=== PATIENT | female | born 1975 | race Caucasian/White ===

== ENCOUNTER 2019-05-22 09:45 | Emergency (ER) | payer OTHER ==
[~2019-05-22] VITALS: Ht 160 cm; Wt 56.2 kg
[~2019-05-22 09:45] MED LIST: ALPR.25 PO; AMOCLA500 PO; AMOX500 PO; Bactrim Ds Tab1 EACH PO; CEFD300 PO; CEPH500 PO; CIPR500 PO; CLIN300 PO; CLON.1 PO; CLON.2 PO; CLON.5 PO; CODACE30 PO; CRUTCH4 USE; Cleocin HCl300 MG PO; Cyclobenzaprine5 MG PO; DESI50 MT; DICY20 PO; DIVA500EC PO; ESCI10 PO; FLUO10 PO; FLUT.05NI; HYDACE25S PR; HYDACE5 PO; HYDMOR2 PO; IBUP800 PO; IRON150C; Keflex500 MG PO; LITH300ER PO; LORA1 PO; MIRT30; MULVITMINE; NAPR375 PO; NAPR500 PO; Naprosyn500 MG PO; OLAN20 PO; OMEP20ER PO; ONDA4 PO; ONDA4ODT SL; OXYACE5T PO; PENVK500 PO; PHENA200 PO; PRED20 PO; PRODEXEL PO; PROG100 PO; PROM25 PO; PROP10 PO; RXCLIN PO; RXNAPNA550 PO; SILSUL1TC TOP; SUBUTEX; SULTRIDS PO; TRAACE PO; TRAM50 PO; TRAZ50 PO; VENL37.5ER PO; Verotin-Gr Cap1 EACH PO
[2019-05-22 11:24] LABS: BASOPHILS ABSOLUTE AUTO 0.04 K/mm3 (0.00-0.23); BASOPHILS PERCENT AUTO 1 % (0-2); EOSINOPHILS ABSOLUTE AUTO 0.12 K/mm3 (0.00-0.68); EOSINOPHILS PERCENT AUTO 2 % (0-6); Hematocrit 36.4 % (33.0-51.0); Hemoglobin 11.6 g/dL (11.5-16.0); IMMATURE GRAN ABSOLUTE AUTO 0.02 K/mm3 (0.00-0.10); IMMATURE GRAN PERCENT AUTO 0 % (0-1); LYMPHOCYTES ABSOLUTE AUTO 1.42 K/mm3 (0.84-5.20); LYMPHOCYTES PERCENT AUTO 19 % (21-46); MONOCYTES ABSOLUTE AUTO 0.46 K/mm3 (0.16-1.47); MONOCYTES PERCENT AUTO 6 % (4-13); Mean Corpuscular HGB 28.1 pg (26.0-34.0); Mean Corpuscular HGB Conc 31.9 g/dL (31.5-36.5); Mean Corpuscular Volume 88 fL (80-100); Mean Platelet Volume 10.8 fL (9.1-12.4); NEUTROPHILS PERCENT AUTO 73 % (41-73); Platelet Count 261 K/mm3 (150-400); RDW Coefficient Variation 14.3 % (11.7-14.2); RDW Standard Deviation 45.8 fL (35.1-46.3); Red Blood Cell Count 4.13 M/mm3 (3.80-5.20); White Blood Cell Count 7.56 K/mm3 (4.00-11.30)
[2019-05-22 11:43] LABS: Acetaminophen, Random <2.0 ug/mL (10.0-30.0); Alanine Aminotransfer (ALT/SGP 18 U/L (12-78); Albumin, Blood 3.2 g/dL (3.4-5.0); Alk Phos 68 U/L (50-136); Anion Gap 6 mmol/L (6-16); Aspartate Aminotrans (AST/SGOT 14 U/L (12-37); Bilirubin, Total 0.2 mg/dL (0.1-1.0); Blood Urea Nitrogen 9 mg/dL (8-24); Bun/Creatinine Ratio 17.4 (12.0-20.0); CO2, Blood 27 mmol/L (21-32); Calcium, Blood 8.6 mg/dL (8.5-10.1); Chloride, Blood 110 mmol/L (98-108); Creatinine, Blood 0.52 mg/dL (0.40-1.00); Ethanol (Alcohol), Blood, Med <3 mg/dL; Globulin, Blood 3.3 g/dL (2.2-4.0); Glomerular Filtration Rate >60 (60-); Glucose, Blood 104 mg/dL (70-99); Potassium, Blood 3.7 mmol/L (3.5-5.5); Salicylate <1.7 mg/dL (2.8-20.0); Sodium, Blood 143 mmol/L (136-145); Thyroxine (T4) 7.5 ug/dL (4.8-13.9); Total Protein, Blood 6.5 g/dL (6.4-8.2)
[2019-05-22 11:49] LABS: Source, Urine Voided
[2019-05-22 11:52] LABS: Bilirubin, Urine Neg (Neg); Blood, Urine 1+ (Neg); Glucose Qualitative, Urine Neg (Neg); Ketones, Urine 1+ (Neg); Leukocyte Esterase, Urine 2+ (Neg); Nitrite, Urine Neg (Neg); Protein, Urine 1+ (Neg); Urobilinogen, Urine 1+ (Normal)
[2019-05-22 12:13] LABS: U Amphetamine Screen DETECTED; U Barbituate Screen Not Detected; U Benzodiazapine Screen Not Detected; U Cocaine Screen Not Detected; U Methamphetamine Screen DETECTED
[2019-05-22 12:14] LABS: U Buprenorphine Screen Not Detected; U Cannabinoids Screen DETECTED; U Methadone Screen Not Detected; U Opiates Screen DETECTED; U Oxycodone Screen Not Detected; U Phencyclidine Screen Not Detected; U Propoxyphene Screen Not Detected
[2019-05-22 12:17] LABS: Appearance, Urine Hazy (Clear); Color, Urine Yellow (P-Yellow)
[2019-05-22 12:19] LABS: White Blood Cells, Urine 25-50 /hpf (0-5)
[2019-05-22 12:20] LABS: Bacteria Many /hpf; Red Blood Cells, Urine 0-2 /hpf (0-2); Squamous Epithelial Cells Many /hpf (Few)
[2019-05-22 12:21] LABS: Calcium Oxalate Crystals Mod /hpf
== END 2019-05-22 12:53 | disposition home or self-care (01) ==
LOC: ER 09:45
PROVIDERS: Emergency Medicine
DX: F31.9 Bipolar disorder, unspecified (principal); F17.200 Nicotine dependence, unspecified, uncomplicated
CPT/HCPCS: 36415; 80053; 81001; 81025; 84436; 85025; 87077; 87086; 87186; 99284; G0480

== ENCOUNTER 2019-06-26 17:09 | Observation (INO) | payer OTHER ==
[~2019-06-26] VITALS: Ht 160 cm; Wt 74.8 kg
[2019-06-26 17:45] LABS: BASOPHILS ABSOLUTE AUTO 0.04 K/mm3 (0.00-0.23); BASOPHILS PERCENT AUTO 1 % (0-2); EOSINOPHILS ABSOLUTE AUTO 0.08 K/mm3 (0.00-0.68); EOSINOPHILS PERCENT AUTO 1 % (0-6); Hematocrit 46.7 % (33.0-51.0); Hemoglobin 15.1 g/dL (11.5-16.0); IMMATURE GRAN PERCENT AUTO 0 % (0-1); LYMPHOCYTES ABSOLUTE AUTO 2.46 K/mm3 (0.84-5.20); LYMPHOCYTES PERCENT AUTO 31 % (21-46); MONOCYTES ABSOLUTE AUTO 0.67 K/mm3 (0.16-1.47); MONOCYTES PERCENT AUTO 8 % (4-13); Mean Corpuscular HGB 28.9 pg (26.0-34.0); Mean Corpuscular HGB Conc 32.3 g/dL (31.5-36.5); Mean Corpuscular Volume 89 fL (80-100); NEUTROPHILS ABSOLUTE AUTO 4.73 K/mm3 (1.96-9.15); NEUTROPHILS PERCENT AUTO 59 % (41-73); Platelet Count 264 K/mm3 (150-400); RDW Coefficient Variation 13.9 % (11.7-14.2); RDW Standard Deviation 45.8 fL (35.1-46.3); Red Blood Cell Count 5.23 M/mm3 (3.80-5.20); White Blood Cell Count 7.98 K/mm3 (4.00-11.30)
[2019-06-26 17:47] LABS: Source, Urine Clean Catch
[2019-06-26 17:53] LABS: Bilirubin, Urine Neg (Neg); Blood, Urine Neg (Neg); Glucose Qualitative, Urine Neg (Neg); Ketones, Urine Neg (Neg); Leukocyte Esterase, Urine 1+ (Neg); Nitrite, Urine Neg (Neg); Protein, Urine 1+ (Neg); Specific Gravity, Urine 1.015 (1.003-1.022); Urobilinogen, Urine 1+ (Normal)
[2019-06-26 17:58] LABS: Appearance, Urine Clear (Clear); Color, Urine Yellow (P-Yellow)
[2019-06-26 18:00] LABS: Amorphous Mod (0-Heavy); Bacteria Many /hpf; Hyaline Casts 0-2 /lpf (0-2); Mucus Mod (0-Heavy); Red Blood Cells, Urine 0-2 /hpf (0-2); Squamous Epithelial Cells Few /hpf (Few)
[2019-06-26 18:04] LABS: U Amphetamine Screen Not Detected; U Barbituate Screen Not Detected; U Benzodiazapine Screen Not Detected; U Buprenorphine Screen Not Detected; U Cannabinoids Screen Not Detected; U Cocaine Screen Not Detected; U Methadone Screen Not Detected; U Methamphetamine Screen Not Detected; U Opiates Screen Not Detected; U Oxycodone Screen Not Detected; U Phencyclidine Screen Not Detected; U Propoxyphene Screen Not Detected
[2019-06-26 18:05] LABS: International Normalized Ratio 1.07; Prothrombin Time Results 11.4 Sec (9.7-11.5)
[2019-06-26 18:07] LABS: Alanine Aminotransfer (ALT/SGP 22 U/L (12-78); Albumin, Blood 4.6 g/dL (3.4-5.0); Albumin/Globulin Ratio 1.3 (0.8-1.8); Alk Phos 71 U/L (50-136); Anion Gap 2 mmol/L (6-16); Aspartate Aminotrans (AST/SGOT 15 U/L (12-37); Bilirubin, Total 0.5 mg/dL (0.1-1.0); Blood Urea Nitrogen 14 mg/dL (8-24); Bun/Creatinine Ratio 22.4 (12.0-20.0); CO2, Blood 29 mmol/L (21-32); Calcium, Blood 9.8 mg/dL (8.5-10.1); Chloride, Blood 110 mmol/L (98-108); Creatinine, Blood 0.62 mg/dL (0.40-1.00); Ethanol (Alcohol), Blood, Med <3 mg/dL; Globulin, Blood 3.5 g/dL (2.2-4.0); Glomerular Filtration Rate >60 (60-); Glucose, Blood 106 mg/dL (70-99); Sodium, Blood 141 mmol/L (136-145); Total Protein, Blood 8.1 g/dL (6.4-8.2)
[2019-06-26 18:12] LABS: Lithium <0.20 mmol/L (0.60-1.20)
[2019-06-29 08:54] LABS: Free Thyroxine 1.38 ng/dL (0.70-1.60)
[2019-06-29 08:58] LABS: Triiodothyronine, Free 3.14 pg/mL (2.18-3.98)
[2019-07-03] MEDS ORDERED: QUET300 PO (14:27)
[2019-07-03] MEDS ORDERED: LEVFLO500 PO (14:28)
[2019-07-03] MEDS ORDERED: Seroquel Xr50 MG PO (14:28)
[2019-07-03] MEDS ORDERED: ZYPREXA10 MG IM (14:29)
== END 2019-07-03 10:40 ==
LOC: ER 17:09 → EOR 17:10
PROVIDERS: Emergency Medicine; Physician Assistant; ADMIT Emergency Medicine
DX: F23 Brief psychotic disorder (principal)
CPT/HCPCS: 36415; 80053; 80178; 81001; 81025; 84439; 84443; 84481; 85025; 85610; 87077; 87086; 87186; 93005; 93010; 96372; 99285-25; A9270-GY; G0378; G0480; J1200; J1630; J2060; J3486

== ENCOUNTER 2019-07-03 14:16 | Observation (INO) | payer OTHER ==
[~2019-07-03] VITALS: Ht 160 cm; Wt 74.8 kg
[2019-07-03] MEDS ORDERED: QUET300 PO (14:27)
[2019-07-03] MEDS ORDERED: Seroquel Xr50 MG PO (14:28)
[2019-07-03] MEDS ORDERED: LEVFLO500 PO (14:28)
[2019-07-03] MEDS ORDERED: ZYPREXA10 MG IM (14:29)
== END 2019-07-07 18:30 ==
LOC: ER 14:16 → EOR 14:24
PROVIDERS: ADMIT Emergency Medicine
DX: F20.89 Other schizophrenia (principal); F17.210 Nicotine dependence, cigarettes, uncomplicated; Z79.899 Other long term (current) drug therapy
CPT/HCPCS: 74018; 96372; 99285-25; G0378; J1200; J1630; J2060

== ENCOUNTER → 2019-10-19 | Outpatient (CLI) | payer OTHER ==
[~2019-10-19] MED LIST changes: +LEVFLO500 PO; +QUET300 PO; +Seroquel Xr50 MG PO; +ZYPREXA10 MG IM
[2019-10-20 10:13] LABS: Candida species (DNA Probe) Negative (NEGATIVE); G. vaginalis (DNA Probe) Positive (NEGATIVE); T. vaginalis (DNA Probe) Positive (NEGATIVE)
[2019-10-21 08:09] LABS: CHLAMYDIA TRACHOMATIS, NAA Negative (Negative); NEISSERIA GONORRHOEAE, NAA Negative (Negative)
== END ==
LOC: LAB SHORT 12:51 → LAB SRC 12:51
PROVIDERS: Nurse Practitioner Family
DX: N89.8 Other specified noninflammatory disorders of vagina (principal)
CPT/HCPCS: 87070; 87205; 87480; 87491; 87510; 87591; 87660

== ENCOUNTER 2019-11-19 20:18 | Emergency (ER) | payer OTHER ==
[~2019-11-19] VITALS: Ht 160 cm; Wt 59.0 kg
== END 2019-11-19 23:36 | disposition left against medical advice (07) ==
LOC: ER 20:18
DX: Z53.21 Procedure and treatment not carried out due to patient leaving prior to being seen by health care provider (principal)
CPT/HCPCS: 70160; 99283-25

== ENCOUNTER 2020-01-12 12:10 | Emergency (ER) | payer OTHER ==
[~2020-01-12] VITALS: Ht 160 cm; Wt 63.5 kg
== END 2020-01-12 14:28 | disposition home or self-care (01) ==
LOC: ER 12:10
DX: S01.81XA Laceration without foreign body of other part of head, initial encounter (principal); S80.211A Abrasion, right knee, initial encounter; R42 Dizziness and giddiness; F41.9 Anxiety disorder, unspecified; F29 Unspecified psychosis not due to a substance or known physiological condition; F43.10 Post-traumatic stress disorder, unspecified; F17.210 Nicotine dependence, cigarettes, uncomplicated; Z79.899 Other long term (current) drug therapy; W10.1XXA Fall (on)(from) sidewalk curb, initial encounter; Y92.480 Sidewalk as the place of occurrence of the external cause
CPT/HCPCS: 12051; 99284-25

== ENCOUNTER 2020-01-17 10:44 | Emergency (ER) | payer OTHER ==
[~2020-01-17] VITALS: Ht 160 cm; Wt 66.2 kg
[2020-01-17] MEDS ORDERED: METH40 PO (10:50)
[2020-01-17] MEDS ORDERED: ARISTADA IM (10:50)
== END 2020-01-17 11:16 | disposition home or self-care (01) ==
LOC: ER 10:44
DX: S01.111D Laceration without foreign body of right eyelid and periocular area, subsequent encounter (principal); F41.9 Anxiety disorder, unspecified; F17.200 Nicotine dependence, unspecified, uncomplicated; Z79.899 Other long term (current) drug therapy; X58.XXXD Exposure to other specified factors, subsequent encounter

== ENCOUNTER 2020-03-13 08:04 | Day surgery (SDC) | payer OTHER ==
[~2020-03-13 08:04] MED LIST changes: +ARISTADA IM; +METH40 PO
== END 2020-03-13 23:21 | disposition home or self-care (01) ==
LOC: WOUND 08:04
DX: S41.102D Unspecified open wound of left upper arm, subsequent encounter (principal); S41.002D Unspecified open wound of left shoulder, subsequent encounter; L02.91 Cutaneous abscess, unspecified; B95.62 Methicillin resistant Staphylococcus aureus infection as the cause of diseases classified elsewhere; F17.200 Nicotine dependence, unspecified, uncomplicated
CPT/HCPCS: G0463

== ENCOUNTER 2020-03-15 00:26 | Day surgery (SDC) | payer OTHER | END 2020-03-15 22:55 | disposition home or self-care (01) | LOC: WOUND 00:26 | DX: S41.102D Unspecified open wound of left upper arm, subsequent encounter (principal); S41.002D Unspecified open wound of left shoulder, subsequent encounter; L02.414 Cutaneous abscess of left upper limb; I96 Gangrene, not elsewhere classified; B95.62 Methicillin resistant Staphylococcus aureus infection as the cause of diseases classified elsewhere; E07.9 Disorder of thyroid, unspecified; B19.20 Unspecified viral hepatitis C without hepatic coma; Z79.899 Other long term (current) drug therapy; X58.XXXD Exposure to other specified factors, subsequent encounter | CPT/HCPCS: G0463 ==

== ENCOUNTER 2020-03-18 01:19 | Day surgery (SDC) | payer OTHER | END 2020-03-18 23:12 | disposition home or self-care (01) | LOC: WOUND 01:19 | DX: L02.414 Cutaneous abscess of left upper limb (principal); B95.62 Methicillin resistant Staphylococcus aureus infection as the cause of diseases classified elsewhere; I96 Gangrene, not elsewhere classified; F41.9 Anxiety disorder, unspecified; B19.20 Unspecified viral hepatitis C without hepatic coma; F31.9 Bipolar disorder, unspecified; F89 Unspecified disorder of psychological development; Z79.899 Other long term (current) drug therapy; Z85.41 Personal history of malignant neoplasm of cervix uteri | CPT/HCPCS: G0463 ==

== ENCOUNTER 2020-03-20 01:07 | Day surgery (SDC) | payer OTHER | END 2020-03-20 22:46 | disposition home or self-care (01) | LOC: WOUND 01:07 | DX: S41.102D Unspecified open wound of left upper arm, subsequent encounter (principal); S41.002D Unspecified open wound of left shoulder, subsequent encounter; L02.91 Cutaneous abscess, unspecified; B95.62 Methicillin resistant Staphylococcus aureus infection as the cause of diseases classified elsewhere | CPT/HCPCS: G0463 ==

== ENCOUNTER 2020-03-22 00:48 | Day surgery (SDC) | payer OTHER | END 2020-03-22 23:03 | disposition home or self-care (01) | LOC: WOUND 00:48 | DX: L02.414 Cutaneous abscess of left upper limb (principal); S41.102D Unspecified open wound of left upper arm, subsequent encounter; S41.002D Unspecified open wound of left shoulder, subsequent encounter; B95.62 Methicillin resistant Staphylococcus aureus infection as the cause of diseases classified elsewhere; E07.9 Disorder of thyroid, unspecified; I96 Gangrene, not elsewhere classified; X58.XXXD Exposure to other specified factors, subsequent encounter | CPT/HCPCS: G0463 ==

== ENCOUNTER 2020-03-25 02:18 | Day surgery (SDC) | payer OTHER | END 2020-03-25 23:20 | disposition home or self-care (01) | LOC: WOUND 02:18 | DX: L02.414 Cutaneous abscess of left upper limb (principal); B95.62 Methicillin resistant Staphylococcus aureus infection as the cause of diseases classified elsewhere; S41.102D Unspecified open wound of left upper arm, subsequent encounter; S41.002D Unspecified open wound of left shoulder, subsequent encounter; I96 Gangrene, not elsewhere classified; F41.9 Anxiety disorder, unspecified; F31.9 Bipolar disorder, unspecified; F89 Unspecified disorder of psychological development; E07.9 Disorder of thyroid, unspecified; Z79.899 Other long term (current) drug therapy; X58.XXXD Exposure to other specified factors, subsequent encounter ==

== ENCOUNTER 2020-03-27 03:12 | Day surgery (SDC) | payer OTHER | END 2020-03-27 23:33 | disposition home or self-care (01) | LOC: WOUND 03:12 | DX: L02.414 Cutaneous abscess of left upper limb (principal); S41.102D Unspecified open wound of left upper arm, subsequent encounter; S41.002D Unspecified open wound of left shoulder, subsequent encounter; B95.62 Methicillin resistant Staphylococcus aureus infection as the cause of diseases classified elsewhere; E07.9 Disorder of thyroid, unspecified; X58.XXXD Exposure to other specified factors, subsequent encounter; Z79.899 Other long term (current) drug therapy | CPT/HCPCS: G0463 ==

== ENCOUNTER 2020-04-01 01:33 | Day surgery (SDC) | payer OTHER | END 2020-04-01 22:56 | disposition home or self-care (01) | LOC: WOUND 01:33 | DX: S41.102D Unspecified open wound of left upper arm, subsequent encounter (principal); S41.002D Unspecified open wound of left shoulder, subsequent encounter; L02.91 Cutaneous abscess, unspecified; B95.62 Methicillin resistant Staphylococcus aureus infection as the cause of diseases classified elsewhere | CPT/HCPCS: G0463 ==

== ENCOUNTER 2021-02-12 17:25 | Observation (INO) | payer OTHER ==
[~2021-02-12] VITALS: Ht 160 cm; Wt 59.6 kg
[2021-02-12 18:24] LABS: Source, Urine Voided
[2021-02-12 18:32] LABS: Appearance, Urine Hazy (Clear); Bilirubin, Urine Neg (Neg); Blood, Urine Neg (Neg); Color, Urine Yellow (P-Yellow); Glucose Qualitative, Urine Neg (Neg); Ketones, Urine Neg (Neg); Leukocyte Esterase, Urine 1+ (Neg); Nitrite, Urine Neg (Neg); Protein, Urine 1+ (Neg); Specific Gravity, Urine 1.015 (1.003-1.022); Urobilinogen, Urine NORM (Normal)
[2021-02-12 18:40] LABS: BASOPHILS ABSOLUTE AUTO 0.04 K/mm3 (0.00-0.23); BASOPHILS PERCENT AUTO 0 % (0-2); EOSINOPHILS ABSOLUTE AUTO 0.06 K/mm3 (0.00-0.68); EOSINOPHILS PERCENT AUTO 1 % (0-6); Hemoglobin 13.7 g/dL (11.5-16.0); IMMATURE GRAN ABSOLUTE AUTO 0.04 K/mm3 (0.00-0.10); IMMATURE GRAN PERCENT AUTO 0 % (0-1); LYMPHOCYTES ABSOLUTE AUTO 1.61 K/mm3 (0.84-5.20); LYMPHOCYTES PERCENT AUTO 15 % (21-46); MONOCYTES ABSOLUTE AUTO 0.53 K/mm3 (0.16-1.47); MONOCYTES PERCENT AUTO 5 % (4-13); Mean Corpuscular HGB 27.7 pg (26.0-34.0); Mean Corpuscular HGB Conc 32.6 g/dL (31.5-36.5); Mean Corpuscular Volume 85 fL (80-100); Mean Platelet Volume 10.5 fL (9.1-12.4); NEUTROPHILS ABSOLUTE AUTO 8.62 K/mm3 (1.96-9.15); NEUTROPHILS PERCENT AUTO 79 % (41-73); Platelet Count 297 K/mm3 (150-400); RDW Coefficient Variation 14.6 % (11.7-14.2); RDW Standard Deviation 44.6 fL (35.1-46.3); Red Blood Cell Count 4.94 M/mm3 (3.80-5.20)
[2021-02-12 18:53] LABS: U Amphetamine Screen DETECTED; U Barbituate Screen Not Detected; U Benzodiazapine Screen Not Detected; U Buprenorphine Screen Not Detected; U Cannabinoids Screen Not Detected; U Cocaine Screen Not Detected; U Methadone Screen Not Detected; U Methamphetamine Screen DETECTED; U Opiates Screen Not Detected; U Oxycodone Screen Not Detected; U Phencyclidine Screen Not Detected; U Propoxyphene Screen Not Detected
[2021-02-12 18:54] LABS: Alanine Aminotransfer (ALT/SGP 17 U/L (12-78); Alk Phos 90 U/L (50-136); Anion Gap 5 mmol/L (6-16); Aspartate Aminotrans (AST/SGOT 11 U/L (12-37); Bilirubin, Total 0.3 mg/dL (0.1-1.0); Blood Urea Nitrogen 10 mg/dL (8-24); Bun/Creatinine Ratio 16.6 (12.0-20.0); CO2, Blood 24 mmol/L (21-32); Calcium, Blood 9.1 mg/dL (8.5-10.1); Chloride, Blood 113 mmol/L (98-108); Ethanol (Alcohol), Blood, Med <3 mg/dL; Globulin, Blood 3.9 g/dL (2.2-4.0); Glomerular Filtration Rate >60 (60-); Glucose, Blood 92 mg/dL (70-99); Potassium, Blood 2.6 mmol/L (3.5-5.5); Salicylate <1.7 mg/dL (2.8-20.0); Sodium, Blood 142 mmol/L (136-145); Total Protein, Blood 7.9 g/dL (6.4-8.2)
[2021-02-12 18:56] LABS: Acetaminophen, Random <2.0 ug/mL (10.0-30.0)
[2021-02-12 19:22] LABS: Amorphous Mod (0-Heavy); Bacteria Many /hpf; Red Blood Cells, Urine 0-2 /hpf (0-2); Squamous Epithelial Cells Many /hpf (Few)
[2021-02-14 11:19] LABS: SARS-Cov-2 (COVID-19) PCR, MMC POSITIVE (NEGATIVE)
[2021-02-14 13:51] LABS: BASOPHILS ABSOLUTE AUTO 0.02 K/mm3 (0.00-0.23); BASOPHILS PERCENT AUTO 0 % (0-2); EOSINOPHILS ABSOLUTE AUTO 0.04 K/mm3 (0.00-0.68); EOSINOPHILS PERCENT AUTO 0 % (0-6); Hematocrit 41.2 % (33.0-51.0); Hemoglobin 13.5 g/dL (11.5-16.0); IMMATURE GRAN ABSOLUTE AUTO 0.03 K/mm3 (0.00-0.10); IMMATURE GRAN PERCENT AUTO 0 % (0-1); LYMPHOCYTES ABSOLUTE AUTO 1.21 K/mm3 (0.84-5.20); LYMPHOCYTES PERCENT AUTO 12 % (21-46); MONOCYTES ABSOLUTE AUTO 0.46 K/mm3 (0.16-1.47); MONOCYTES PERCENT AUTO 5 % (4-13); Mean Corpuscular HGB 27.8 pg (26.0-34.0); Mean Corpuscular HGB Conc 32.8 g/dL (31.5-36.5); Mean Corpuscular Volume 85 fL (80-100); Mean Platelet Volume 10.3 fL (9.1-12.4); NEUTROPHILS ABSOLUTE AUTO 8.21 K/mm3 (1.96-9.15); NEUTROPHILS PERCENT AUTO 82 % (41-73); Platelet Count 261 K/mm3 (150-400); RDW Coefficient Variation 14.6 % (11.7-14.2); Red Blood Cell Count 4.85 M/mm3 (3.80-5.20); White Blood Cell Count 9.97 K/mm3 (4.00-11.30)
[2021-02-14 14:09] LABS: Alanine Aminotransfer (ALT/SGP 15 U/L (12-78); Albumin, Blood 3.7 g/dL (3.4-5.0); Albumin/Globulin Ratio 1.1 (0.8-1.8); Alk Phos 81 U/L (50-136); Anion Gap 6 mmol/L (6-16); Aspartate Aminotrans (AST/SGOT 13 U/L (12-37); Bilirubin, Total 0.2 mg/dL (0.1-1.0); Blood Urea Nitrogen 8 mg/dL (8-24); Bun/Creatinine Ratio 12.6 (12.0-20.0); CO2, Blood 26 mmol/L (21-32); Calcium, Blood 9.1 mg/dL (8.5-10.1); Chloride, Blood 111 mmol/L (98-108); Creatinine, Blood 0.63 mg/dL (0.40-1.00); Globulin, Blood 3.4 g/dL (2.2-4.0); Glomerular Filtration Rate >60 (60-); Glucose, Blood 95 mg/dL (70-99); Potassium, Blood 3.5 mmol/L (3.5-5.5); Sodium, Blood 143 mmol/L (136-145); Total Protein, Blood 7.1 g/dL (6.4-8.2)
== END 2021-02-19 17:23 | disposition home or self-care (01) ==
LOC: ER 17:25 → EOR 17:26 → MEDS 17:26 → EOR 02-14 14:47 → MEDS 02-14 14:47 → ER 02-14 14:47 → EOR 02-14 14:47 → MEDS 02-14 14:48 → ER 02-14 14:48 → MEDS 02-14 14:48
PROVIDERS: Nurse Practitioner Acute Care; ADMIT Emergency Medicine
DX: F20.9 Schizophrenia, unspecified (principal); F19.10 Other psychoactive substance abuse, uncomplicated; U07.1 COVID-19; F17.210 Nicotine dependence, cigarettes, uncomplicated; Z86.19 Personal history of other infectious and parasitic diseases
CPT/HCPCS: 36415; 71045; 80053; 81001; 81025; 83735; 85025; 87077; 87086; 87186; 96372; 99285-25; A9270; G0378; G0480; J1200; J1630; U0004

== ENCOUNTER 2021-08-09 23:26 | Emergency (ER) | payer OTHER ==
[~2021-08-09] VITALS: Ht 160 cm; Wt 63.5 kg
[2021-08-09] MEDS ORDERED: IBUP600 PO (23:49)
[2021-08-09] MEDS ORDERED: Amoxicillin500 MG PO (23:49)
== END 2021-08-09 23:55 | disposition home or self-care (01) ==
LOC: ER 23:26
DX: K04.7 Periapical abscess without sinus (principal); L03.211 Cellulitis of face; F17.200 Nicotine dependence, unspecified, uncomplicated
CPT/HCPCS: 99283; A9270

== ENCOUNTER 2021-09-27 21:43 | Observation (INO) | payer OTHER ==
[~2021-09-27] VITALS: Ht 160 cm; Wt 59.0 kg
[~2021-09-27 21:43] MED LIST changes: +Amoxicillin500 MG PO; +IBUP600 PO
[2021-09-28 00:50] LABS: BASOPHILS ABSOLUTE AUTO 0.03 K/mm3 (0.00-0.23); BASOPHILS PERCENT AUTO 0 % (0-2); EOSINOPHILS ABSOLUTE AUTO 0.12 K/mm3 (0.00-0.68); EOSINOPHILS PERCENT AUTO 1 % (0-6); Hematocrit 38.4 % (33.0-51.0); Hemoglobin 12.2 g/dL (11.5-16.0); IMMATURE GRAN ABSOLUTE AUTO 0.03 K/mm3 (0.00-0.10); IMMATURE GRAN PERCENT AUTO 0 % (0-1); LYMPHOCYTES ABSOLUTE AUTO 2.02 K/mm3 (0.84-5.20); LYMPHOCYTES PERCENT AUTO 21 % (21-46); MONOCYTES ABSOLUTE AUTO 0.69 K/mm3 (0.16-1.47); MONOCYTES PERCENT AUTO 7 % (4-13); Mean Corpuscular HGB 26.8 pg (26.0-34.0); Mean Corpuscular HGB Conc 31.8 g/dL (31.5-36.5); Mean Corpuscular Volume 84 fL (80-100); Mean Platelet Volume 10.4 fL (9.1-12.4); NEUTROPHILS ABSOLUTE AUTO 6.61 K/mm3 (1.96-9.15); NEUTROPHILS PERCENT AUTO 70 % (41-73); Platelet Count 187 K/mm3 (150-400); RDW Coefficient Variation 14.4 % (11.7-14.2); RDW Standard Deviation 43.8 fL (35.1-46.3); Red Blood Cell Count 4.56 M/mm3 (3.80-5.20)
[2021-09-28 01:04] LABS: Ethanol (Alcohol), Blood, Med <3 mg/dL; Salicylate <1.7 mg/dL (2.8-20.0)
[2021-09-28 01:13] LABS: Alanine Aminotransfer (ALT/SGP 12 U/L (12-78); Albumin, Blood 3.6 g/dL (3.4-5.0); Albumin/Globulin Ratio 1.3 (0.8-1.8); Alk Phos 87 U/L (50-136); Anion Gap 7 mmol/L (6-16); Aspartate Aminotrans (AST/SGOT 7 U/L (12-37); Bilirubin, Total 0.3 mg/dL (0.1-1.0); Blood Urea Nitrogen 15 mg/dL (8-24); Bun/Creatinine Ratio 22.4 (12.0-20.0); CO2, Blood 27 mmol/L (21-32); Calcium, Blood 8.1 mg/dL (8.5-10.1); Chloride, Blood 108 mmol/L (98-108); Creatinine, Blood 0.67 mg/dL (0.40-1.00); Globulin, Blood 2.7 g/dL (2.2-4.0); Glomerular Filtration Rate 110 (60-); Glucose, Blood 74 mg/dL (70-99); Potassium, Blood 3.3 mmol/L (3.5-5.5); Sodium, Blood 142 mmol/L (136-145); Total Protein, Blood 6.3 g/dL (6.4-8.2)
[2021-09-28 01:14] LABS: Acetaminophen, Random <2.0 ug/mL (10.0-30.0)
[2021-09-28 01:44] LABS: SARS-Cov-2 (COVID-19) PCR, MMC NEGATIVE (NEGATIVE)
[2021-09-28 11:09] LABS: Source, Urine Clean Catch
[2021-09-28 11:15] LABS: Bilirubin, Urine Neg (Neg); Blood, Urine Neg (Neg); Glucose Qualitative, Urine Neg (Neg); Ketones, Urine 1+ (Neg); Leukocyte Esterase, Urine 1+ (Neg); Nitrite, Urine Pos (Neg); Protein, Urine 1+ (Neg); Specific Gravity, Urine 1.025 (1.003-1.022); Urobilinogen, Urine NORM (Normal)
[2021-09-28 11:24] LABS: Appearance, Urine Cloudy (Clear); Color, Urine Yellow (P-Yellow)
[2021-09-28 11:25] LABS: Bacteria Many /hpf; Red Blood Cells, Urine 0-2 /hpf (0-2); Squamous Epithelial Cells Few /hpf (Few)
[2021-09-28 11:26] LABS: U Amphetamine Screen Not Detected; U Barbituate Screen Not Detected; U Benzodiazapine Screen Not Detected; U Buprenorphine Screen Not Detected; U Cannabinoids Screen Not Detected; U Cocaine Screen Not Detected; U Methadone Screen Not Detected; U Methamphetamine Screen Not Detected; U Opiates Screen DETECTED; U Oxycodone Screen Not Detected; U Phencyclidine Screen Not Detected; U Propoxyphene Screen Not Detected
== END 2021-09-30 14:23 | disposition home or self-care (01) ==
LOC: ER 21:43 → EOR 21:44
PROVIDERS: ADMIT Student in an Organized Health Care Education/Training Program
DX: F20.9 Schizophrenia, unspecified (principal); F43.10 Post-traumatic stress disorder, unspecified; F17.210 Nicotine dependence, cigarettes, uncomplicated; Z20.822 Contact with and (suspected) exposure to COVID-19; R00.1 Bradycardia, unspecified; F19.10 Other psychoactive substance abuse, uncomplicated
CPT/HCPCS: 80053; 81001; 81025; 85025; 87077; 87086; 87186; 93005; 93010; A9270; G0480; U0004

== ENCOUNTER 2022-11-11 16:28 | Emergency (ER) | payer OTHER ==
[~2022-11-11] VITALS: Ht 160 cm; Wt 60.8 kg
[2022-11-11 16:37] VITALS: BP 138/96
== END 2022-11-11 16:48 | disposition left against medical advice (07) ==
LOC: ER 16:28
DX: R42 Dizziness and giddiness (principal); R44.0 Auditory hallucinations; R44.1 Visual hallucinations; Z53.21 Procedure and treatment not carried out due to patient leaving prior to being seen by health care provider; B19.20 Unspecified viral hepatitis C without hepatic coma
CPT/HCPCS: 99281